=== PATIENT | female | born 1995 | race Caucasian/White ===

== ENCOUNTER 2021-06-29 06:45 | Day surgery (SDC) | payer OTHER ==
[~2021-06-29] VITALS: Ht 154.9 cm; Wt 68.8 kg
[2021-06-29] VITALS (8 sets, daily range): BP systolic 114–127; BP diastolic 69–87; O2SAT 96
[~2021-06-29 06:45] MED LIST: HYDR-3363 PO; LIDOCAINE 1% MDV 20ML VIAL SQ PRN; LR 1,000 ML IV ONE
[2021-06-29] MEDS ORDERED: fentaNYL 100 MCG/2 ML INJECTION As Ordered ONE (08:04)
[2021-06-29] MEDS ORDERED: ACETAMINOPHEN 1000MG 100ML IV BTL (OFIRMEV) (J0131 PER 10MG) As Ordered ONE (08:04)
[2021-06-29] MEDS ORDERED: ONDANSETRON 4MG/2ML VIAL As Ordered ONE (08:04)
[2021-06-29] MEDS ORDERED: propofoL 200 MG/20 ML VIAL As Ordered ONE ×2 (08:04→10:36)
[2021-06-29] MEDS ORDERED: ROCURONIUM BROMIDE 50 MG/5 ML VIAL As Ordered ONE (08:04)
[2021-06-29] MEDS ORDERED: MIDAZOLAM INJ 2MG/2ML VIAL (J2250 PER 1MG) As Ordered ONE (08:04)
[2021-06-29] MEDS ORDERED: dexameTHASONE 4 MG/ML 1ML VIAL (J1100 PER 1MG) As Ordered ONE ×2 (08:04→08:07)
[2021-06-29] MEDS ORDERED: LIDOCAINE 2% 100MG/5ML SDV (FOR ANES.) As Ordered ONE (08:06)
[2021-06-29] MEDS ORDERED: BUPIVACAINE/EPIN 0.5% 30 ML VIAL As Ordered ONE (09:09)
[2021-06-29] MEDS ORDERED: SUGAMMADEX SODIUM 500 MG/5 ML VIAL (BRIDION) As Ordered ONE (09:58)
[2021-06-29] MEDS ORDERED: ALBUTEROL 6.7GM INHALER **FOR ANES. CART/OMNICELL ONLY As Ordered ONE (10:35)
[2021-06-29] MEDS: oxyCODONE 5MG TAB PO PRN ×2 (10:45→11:21)
[2021-06-29] MEDS ORDERED: LR 1,000 ML IV SCH (10:45)
[2021-06-29] MEDS ORDERED: ONDANSETRON 4MG/2ML VIAL IV PRN ×2 (10:45→10:50)
[2021-06-29] MEDS: fentaNYL 100 MCG/2 ML INJECTION IV PRN ×4 (10:46→11:08)
[2021-06-29] MEDS: LR 1,000 ML IV SCH ×2 (11:09→19:26)
[2021-06-29] MEDS: HYDROcodone/APAP LIQUID 7.5-325MG 15ML UDC (LORTAB ELIXIR) PO PRN ×3 (14:44→23:59)
[2021-06-30 02:00] VITALS: BP 128/77
[2021-06-30] MEDS: HYDROcodone/APAP LIQUID 7.5-325MG 15ML UDC (LORTAB ELIXIR) PO PRN (05:50)
[2021-06-30 06:00] VITALS: BP 113/75
[2021-06-30 06:30] VITALS: O2SAT 97
== END 2021-06-30 07:30 | disposition home or self-care (01) ==
LOC: M SDC 06:45 → M MS5PR 11:30 → M SDC 06-30 07:30
PROVIDERS: ATTEND Otolaryngology
DX: J35.03 Chronic tonsillitis and adenoiditis (principal); K21.9 Gastro-esophageal reflux disease without esophagitis; R00.0 Tachycardia, unspecified; Z79.899 Other long term (current) drug therapy; F17.290 Nicotine dependence, other tobacco product, uncomplicated
CPT/HCPCS: 42821; 81025; 88302; J0131; J1100; J2250; J2405; J3010

== ENCOUNTER 2021-07-06 04:16 | Emergency (ER) | payer OTHER ==
[~2021-07-06] VITALS: Ht 154.9 cm; Wt 64.5 kg
[~2021-07-06 04:16] MED LIST changes: -LIDOCAINE 1% MDV 20ML VIAL SQ PRN; -LR 1,000 ML IV ONE
[2021-07-06] MEDS ORDERED: HYDR1SOL PO (04:26)
[2021-07-06] MEDS ORDERED: LIDOCAINE VISCOUS 2% SOLN 15ML UDC SS ONE (06:15)
[2021-07-06] MEDS ORDERED: AMOXICILLIN SUSP 400 MG/5 ML ORAL SYRINGE *ED PO ONE (06:15)
[2021-07-06] MEDS ORDERED: IBUPROFEN 100 MG/5 ML SUSP UDC DYE FREE PO ONE (06:15)
[2021-07-06 06:18] VITALS: BP 127/93
[2021-07-06] MEDS ORDERED: AMOX400S2 PO (06:25)
[2021-07-06] MEDS ORDERED: LIDO2SOL9 PO (06:25)
[2021-07-06] MEDS ORDERED: IBUP-1824 PO (06:25)
== END 2021-07-06 06:36 | disposition home or self-care (01) ==
LOC: M ED 04:16
DX: H65.03 Acute serous otitis media, bilateral (principal); G89.12 Acute post-thoracotomy pain

== ENCOUNTER 2021-12-21 08:59 | Day surgery (SDC) | payer OTHER ==
[~2021-12-21] VITALS: Ht 154.9 cm; Wt 68.9 kg
[~2021-12-21 08:59] MED LIST changes: +AMOX400S2 PO; +HYDR1SOL PO; +IBUP-1824 PO; +LIDO2SOL9 PO
[2021-12-21] MEDS ORDERED: LR 1,000 ML IV SCH ×3 (09:40→12:35)
[2021-12-21] MEDS ORDERED: ABSO30CA PO (09:46)
[2021-12-21] MEDS ORDERED: OXYMETAZOLINE 0.05% NASAL SPRAY (AFRIN) As Ordered ONE (09:52)
[2021-12-21] MEDS ORDERED: LIDOCAINE W/EPINEPHRINE 1% 20ML VIAL As Ordered ONE (09:52)
[2021-12-21] MEDS ORDERED: COCAINE 4% 4ML NASAL SOLUTION BTL As Ordered ONE (09:53)
[2021-12-21] MEDS ORDERED: fentaNYL 100 MCG/2 ML INJECTION As Ordered ONE (10:19)
[2021-12-21] MEDS ORDERED: ONDANSETRON 4MG 2ML VIAL As Ordered ONE (10:19)
[2021-12-21] MEDS ORDERED: LIDOCAINE 2% 100MG/5ML SDV (FOR ANES.) As Ordered ONE (10:19)
[2021-12-21] MEDS ORDERED: dexameTHASONE 4 MG/ML 1ML VIAL (J1100 PER 1MG) As Ordered ONE (10:19)
[2021-12-21] MEDS ORDERED: METOCLOPRAMIDE INJ 10MG/2ML VIAL (J2765 PER 1) As Ordered ONE (10:19)
[2021-12-21] MEDS ORDERED: ROCURONIUM BROMIDE 50 MG/5 ML VIAL As Ordered ONE (10:19)
[2021-12-21] MEDS ORDERED: MIDAZOLAM INJ 2MG/2ML VIAL (J2250 PER 1MG) As Ordered ONE (10:19)
[2021-12-21] MEDS ORDERED: SUGAMMADEX SODIUM 500 MG/5 ML VIAL (BRIDION) As Ordered ONE (10:19)
[2021-12-21] MEDS ORDERED: propofoL 200 MG/20 ML VIAL As Ordered ONE (10:19)
[2021-12-21] MEDS ORDERED: ACETAMINOPHEN 1000MG 100ML IV BTL (OFIRMEV) (J0131 PER 10MG) As Ordered ONE (10:31)
[2021-12-21] MEDS ORDERED: ePHEDrine SULFATE 25 MG/5 ML(5MG/ML) SYRINGE As Ordered ONE (10:42)
[2021-12-21] MEDS ORDERED: HYDROMORPHONE HCL 0.5 MG/ 0.5 ML SYRINGE (J1170 PER 1) IV PRN (12:00)
[2021-12-21] MEDS ORDERED: ONDANSETRON 4MG 2ML VIAL IV PRN (12:00)
[2021-12-21] MEDS ORDERED: METOCLOPRAMIDE INJ 10MG/2ML VIAL (J2765 PER 1) IV PRN (12:00)
[2021-12-21] MEDS ORDERED: fentaNYL 100 MCG/2 ML INJECTION IV PRN (12:00)
[2021-12-21] MEDS ORDERED: oxyCODONE 5MG TAB PO PRN (12:00)
[2021-12-21 13:20] VITALS: BP 113/73
== END 2021-12-21 13:20 | disposition home or self-care (01) ==
LOC: M SDC 08:59
PROVIDERS: ATTEND Otolaryngology
DX: J34.2 Deviated nasal septum (principal); J34.3 Hypertrophy of nasal turbinates; Z79.899 Other long term (current) drug therapy
CPT/HCPCS: 30140; 30520; 81025; C9046; J0131; J1100; J1170; J2250; J2405; J2765; J3010